=== PATIENT | female | born 1955 | race American Indian/Alaskan Native ===

== ENCOUNTER 2020-03-26 10:30 | Emergency (ER) | payer MEDICARE ==
[2020-03-26 11:01] LABS: Basophils % (Auto) 1.2 % (0.0-1.8); Eosinophils # (Auto) 0.1 K/mm3 (0.0-0.4); Eosinophils % (Auto) 2.6 % (0.0-4.3); Hematocrit 39.3 % (30.3-42.9); Hemoglobin 13.4 gm/dl (10.1-14.3); Lymphocytes # (Auto) 1.3 K/mm3 (1.2-5.4); Lymphocytes % (Auto) 40.2 % (13.4-35.0); Mean Corpuscular HGB Conc 34 % (30-34); Mean Corpuscular Volume 87 fl (79-97); Monocytes # (Auto) 0.2 K/mm3 (0.0-0.8); Monocytes % (Auto) 7.7 % (0.0-7.3); Platelet Count 196 K/mm3 (140-440); Red Cell Distribution Width 13.1 % (13.2-15.2)
[2020-03-26 11:37] LABS: BUN/Creatinine Ratio 16; Blood Urea Nitrogen 13 mg/dL (7-17); Calcium 9.5 mg/dL (8.4-10.2); Hemolysis Index 7
[2020-03-26] MEDS ORDERED: ZIPRASIDONE MESYLATE 20 MG VIAL IM ONE (14:50)
[2020-03-26] MEDS ORDERED: LORazepam 2 MG/ML VIAL IM ONE (14:50)
[2020-03-26 14:58] LABS: Bacteria,Urine 1+ /HPF (Negative); Bilirubin,Urine NEG (Negative); Blood,Urine NEG (Negative); Color,Urine Yellow (Yellow); Protein,Urine <15 mg/dL mg/dL (Negative); Urobilinogen,Urine < 2.0 mg/dL (<2.0)
[2020-03-26 15:03] LABS: Benzodiazepines Screen,Urine PRESUMPTIVE NEGATIVE; Cannabinoid Screen,Urine PRESUMPTIVE NEGATIVE; Cocaine Screen,Urine PRESUMPTIVE NEGATIVE; Methadone Screen,Urine PRESUMPTIVE NEGATIVE; Opiate Screen,Urine PRESUMPTIVE NEGATIVE
[2020-03-26 15:31] LABS: Amphetamine Screen,Urine PRESUMPTIVE POSITIVE
--- NOTE | 2020-03-26 16:58 | Emergency Department Report ---
HPI <HADLEY HOOPER - Last Filed: 03/26/20 21:34> - HPI HPI: 64-year-old -[place] female presents to the emergency department from her [facility] for a mental health evaluation. The patient has a history of schizophrenia. Per the [facility] staff member who brought her in, Claus, the patient has been having disorganized thoughts, erratic behavior and is not at her baseline mental status. Apparently the patient was recently at [facility] for an exacerbation of her schizophrenia but this has not yet been verified. At different points throughout her ED course the patient has display ed some tangential thoughts and expressed delusions and paranoia. At one point the patient tried to run out of the emergency department. She was seen 2 different times by the psychiatric occupancy specialist and her behavior has made her meet criteria to be made a 1013. She denies any hallucinations or any suicidal or homicidal ideations. <JANICE FRY S - Last Filed: 03/26/20 21:52> - General Chief Complaint: Psych Time Seen by Provider: 03/26/20 16:10 ED Past Medical Hx <HADLEY HOOPER - Last Filed: 03/26/20 21:34> - Past Medical History Previous Medical History?: Yes Hx Psychiatric Treatment: Yes (schizophrenia) Additional medical history: substance abuse - Social History Smoking Status: Never Smoker Substance Use Type: Alcohol, Cocaine <JANICE FRY S - Last Filed: 03/26/20 21:52> - Medications Home Medications: Home Medications Medication Instructions Recorded Confirmed Last Taken Type Nitrofurantoin Sutton/M-Cryst 100 mg PO Q12HR #14 capsule 03/26/20 Unknown Rx [Macrobid CAP] ED Review of Systems ROS: Stated complaint: MH EVAL Other details as noted in HPI <HADLEY HOOPER - Last Filed: 03/26/20 21:34> ROS: Stated complaint: MH EVAL Other details as noted in HPI Comment: All other systems reviewed and negative Constitutional: denies: chills, fever Respiratory: denies: cough, shortness of breath Cardiovascular: denies: chest pain, palpitations Gastrointestinal: denies: abdominal pain, vomiting Musculoskeletal: denies: back pain, arthralgia Neurological: denies: headache Psychiatric: denies: homicidal thoughts, suicidal thoughts <JANICE FRY S - Last Filed: 03/26/20 21:52> Physical Exam - Physical Exam Vital Signs: Vital Signs 03/26/20 03/26/20 03/26/20 10:31 15:24 19:30 Temperature 97.9 F 97.7 F Pulse Rate 96 H Respiratory 18 18 Rate Blood Pressure 138/91 [Left] O2 Sat by Pulse 96 96 Oximetry <HADLEY HOOPER - Last Filed: 03/26/20 21:34> - Physical Exam Vital Signs: Vital Signs 03/26/20 03/26/20 10:31 15:24 Temperature 97.9 F 97.7 F Pulse Rate 96 H Respiratory 18 Rate Blood Pressure 138/91 [Left] O2 Sat by Pulse 96 Oximetry Physical Exam: GENERAL: The patient is well-developed well-nourished. HENT: Normocephalic. Atraumatic. Patient has moist mucous membranes. EYES: Extraocular motions are intact. NECK: Supple. Trachea is midline. CHEST/LUNGS: Clear to auscultation. There is no respiratory distress noted. HEART/CARDIOVASCULAR: Regular. There is no tachycardia. ABDOMEN: Abdomen is soft, nontender. Patient has normal bowel sounds. SKIN: Skin is warm and dry. NEURO: The patient is awake, alert. The patient has no focal neurologic defici ts. Normal speech. MUSCULOSKELETAL: There is no tenderness or deformity. There is no evidence of ac [place] injury. PSYCH: The patient has some lucid moments and then other times is seen expressing delusions and tangential thoughts. <JANICE FRY S - Last Filed: 03/26/20 21:52> ED Course Vital Signs 03/26/20 03/26/20 03/26/20 10:31 15:24 19:30 Temperature 97.9 F 97.7 F Pulse Rate 96 H Respiratory 18 18 Rate Blood Pressure 138/91 [Left] O2 Sat by Pulse 96 96 Oximetry - Reevaluation(s) Reevaluation #1: 03/26/20 21:34 Patient has been accepted to the fifth floor psychiatric unit. <SANDIEHADLEY - Last Filed: 03/26/20 21:34> Vital Signs 03/26/20 03/26/20 10:31 15:24 Temperature 97.9 F 97.7 F Pulse Rate 96 H Respiratory 18 Rate Blood Pressure 138/91 [Left] O2 Sat by Pulse 96 Oximetry <JANICE FRY S - Last Filed: 03/26/20 21:52> ED Medical Decision Making - Lab Data Result diagrams: 03/26/20 10:46 03/26/20 10:46 Vital Signs 03/26/20 03/26/20 03/26/20 10:31 15:24 19:30 Temperature 97.9 F 97.7 F Pulse Rate 96 H Respiratory 18 18 Rate Blood Pressure 138/91 [Left] O2 Sat by Pulse 96 96 Oximetry Lab Results 03/26/20 03/26/20 03/26/20 Range/Units 10:46 10:46 10:46 WBC (4.5-11.0) K/mm3 RBC (3.65-5.03) M/mm3 Hgb (10.1-14.3) gm/dl Hct (30.3-42.9) % MCV (79-97) fl MCH (28-32) pg MCHC (30-34) % RDW (13.2-15.2) % Plt Count (140-440) K/mm3 Lymph % (Auto) (13.4-35.0) % Sutton % (Auto) (0.0-7.3) % Eos % (Auto) (0.0-4.3) % Baso % (Auto) (0.0-1.8) % Lymph # (1.2-5.4) K/mm3 Sutton # (0.0-0.8) K/mm3 Eos # (0.0-0.4) K/mm3 Baso # (0.0-0.1) K/mm3 Seg Neutrophils % (40.0-70.0) % Seg Neutrophils # (1.8-7.7) K/mm3 Sodium 137 (137-145) mmol/L Potassium 4.0 (3.6-5.0) mmol/L Chloride 101.0 (98-107) mmol/L Carbon Dioxide 22 (22-30) mmol/L Anion Gap 18 mmol/L BUN 13 (7-17) mg/dL Creatinine 0.8 (0.7-1.2) mg/dL Estimated GFR > 60 ml/min BUN/Creatinine Ratio 16 % Glucose 92 (65-100) mg/dL Calcium 9.5 (8.4-10.2) mg/dL Urine Color (Yellow) Urine Turbidity (Clear) Urine pH (5.0-7.0) Ur Specific [place] (1.003-1.030) Urine Protein (Negative) mg/dL Urine Glucose (UA) (Negative) mg/dL Urine Ketones (Negative) mg/dL Urine Blood (Negative) Urine Nitrite (Negative) Urine Bilirubin (Negative) Urine Urobilinogen (<2.0) mg/dL Ur Leukocyte Esterase (Negative) Urine WBC (Auto) (0.0-6.0) /HPF Urine RBC (Auto) (0.0-6.0) /HPF U Epithel Cells (Auto) (0-13.0) /HPF Urine Bacteria (Auto) (Negative) /HPF Salicylates 4.4 (2.8-20.0) mg/dL Urine Opiates Screen Urine Methadone Screen Acetaminophen < 5.0 L (10.0-30.0) ug/mL Ur Barbiturates Screen Ur Phencyclidine Scrn Ur Amphetamines Screen U Benzodiazepines Scrn Urine Cocaine Screen U Marijuana (THC) Screen Drugs of Abuse Note Plasma/Serum Alcohol (0-0.07) % 03/26/20 03/26/20 03/26/20 Range/Units 10:46 10:46 Unknown WBC 3.2 L (4.5-11.0) K/mm3 RBC 4.50 (3.65-5.03) M/mm3 Hgb 13.4 (10.1-14.3) gm/dl Hct 39.3 (30.3-42.9) % MCV 87 (79-97) fl MCH 30 (28-32) pg MCHC 34 (30-34) % RDW 13.1 L (13.2-15.2) % Plt Count 196 (140-440) K/mm3 Lymph % (Auto) 40.2 H (13.4-35.0) % [place] % (Auto) 7.7 H (0.0-7.3) % Eos % (Auto) 2.6 (0.0-4.3) % Baso % (Auto) 1.2 (0.0-1.8) % Lymph # 1.3 (1.2-5.4) K/mm3 Sutton # 0.2 (0.0-0.8) K/mm3 Eos # 0.1 (0.0-0.4) K/mm3 Baso # 0.0 (0.0-0.1) K/mm3 Seg Neutrophils % 48.3 (40.0-70.0) % Seg Neutrophils # 1.5 L (1.8-7.7) K/mm3 Sodium (137-145) mmol/L Potassium (3.6-5.0) mmol/L Chloride (98-107) mmol/L Carbon Dioxide (22-30) mmol/L Anion Gap mmol/L BUN (7-17) mg/dL Creatinine (0.7-1.2) mg/dL Estimated GFR ml/min BUN/Creatinine Ratio % Glucose (65-100) mg/dL Calcium (8.4-10.2) mg/dL Urine Color Yellow (Yellow) Urine Turbidity Clear (Clear) Urine pH 5.0 (5.0-7.0) Ur Specific [place] 1.014 (1.003-1.030) Urine Protein <15 mg/dl (Negative) mg/dL Urine Glucose (UA) Neg (Negative) mg/dL Urine Ketones Neg (Negative) mg/dL Urine Blood Neg (Negative) Urine Nitrite Pos (Negative) Urine Bilirubin Neg (Negative) Urine Urobilinogen < 2.0 (<2.0) mg/dL Ur Leukocyte Esterase Tr (Negative) Urine WBC (Auto) 4.0 (0.0-6.0) /HPF Urine RBC (Auto) 2.0 (0.0-6.0) /HPF U Epithel Cells (Auto) 3.0 (0-13.0) /HPF Urine Bacteria (Auto) 1+ (Negative) /HPF Salicylates (2.8-20.0) mg/dL Urine Opiates Screen Urine Methadone Screen Acetaminophen (10.0-30.0) ug/mL Ur Barbiturates Screen Ur Phencyclidine Scrn Ur Amphetamines Screen U Benzodiazepines Scrn Urine Cocaine Screen U Marijuana (THC) Screen Drugs of Abuse Note Plasma/Serum Alcohol < 0.01 (0-0.07) % 03/26/20 Range/Units Unknown WBC (4.5-11.0) K/mm3 RBC (3.65-5.03) M/mm3 Hgb (10.1-14.3) gm/dl Hct (30.3-42.9) % MCV (79-97) fl MCH (28-32) pg MCHC (30-34) % RDW (13.2-15.2) % Plt Count (140-440) K/mm3 Lymph % (Auto) (13.4-35.0) % [place] % (Auto) (0.0-7.3) % Eos % (Auto) (0.0-4.3) % Baso % (Auto) (0.0-1.8) % Lymph # (1.2-5.4) K/mm3 [place] # (0.0-0.8) K/mm3 Eos # (0.0-0.4) K/mm3 Baso # (0.0-0.1) K/mm3 Seg Neutrophils % (40.0-70.0) % Seg Neutrophils # (1.8-7.7) K/mm3 Sodium (137-145) mmol/L Potassium (3.6-5.0) mmol/L Chloride (98-107) mmol/L Carbon Dioxide (22-30) mmol/L Anion Gap mmol/L BUN (7-17) mg/dL Creatinine (0.7-1.2) mg/dL Estimated GFR ml/min BUN/Creatinine Ratio % Glucose (65-100) mg/dL Calcium (8.4-10.2) mg/dL Urine Color (Yellow) Urine Turbidity (Clear) Urine pH (5.0-7.0) Ur Specific [place] (1.003-1.030) Urine Protein (Negative) mg/dL Urine Glucose (UA) (Negative) mg/dL Urine Ketones (Negative) mg/dL Urine Blood (Negative) Urine Nitrite (Negative) Urine Bilirubin (Negative) Urine Urobilinogen (<2.0) mg/dL Ur Leukocyte Esterase (Negative) Urine WBC (Auto) (0.0-6.0) /HPF Urine RBC (Auto) (0.0-6.0) /HPF U Epithel Cells (Auto) (0-13.0) /HPF Urine Bacteria (Auto) (Negative) /HPF Salicylates (2.8-20.0) mg/dL Urine Opiates Screen Presumptive negative Urine Methadone Screen Presumptive negative Acetaminophen (10.0-30.0) ug/mL Ur Barbiturates Screen Presumptive negative Ur Phencyclidine Scrn Presumptive negative Ur Amphetamines Screen Presumptive positive U Benzodiazepines Scrn Presumptive negative Urine Cocaine Screen Presumptive negative U Marijuana (THC) Screen Presumptive negative Drugs of Abuse Note Disclamer Plasma/Serum Alcohol (0-0.07) % <SANDIEHADLEY - Last Filed: 03/26/20 21:34> - Lab Data Result diagrams: 03/26/20 10:46 03/26/20 10:46 - Radiology Data Radiology results: report reviewed CT head/brain wo con INDICATION / CLINICAL INFORMATION: AMS. TECHNIQUE: All CT scans at this location are performed using CT dose reduction for ALARA by means of automated exposure control. COMPARISON: None available. FINDINGS: E no acute intracranial hemorrhage. No abnormal extra-axial fluid collection. The ventricular system and basilar cisterns are normal. No large territorial infarction. The visualized paranasal sinuses and osseous structures are normal. IMPRESSION: 1. No acute intracranial abnormality. - Medical Decision Making This patient presents [facility] her [facility] with some erratic behavior and a change in her mental status that includes some delusions, paranoia. Patient was seen 2 different times by the psychiatric occupancy specialist, Joie, and has displayed acute psychosis. Patient denies any suicidal or homicidal ideations. Labs have been mostly unremarkable except for a urine drug screen positive for amphetamines. A CT scan of the head without contrast was completed that does not show any bleed, shift, mass, ischemia or any other acute intracranial abnormality. Her vital signs have been stable throughout her ED course thus far. The patient has been accepted for admission to the [facility] psych unit. <JANICE FRY S - Last Filed: 03/26/20 21:52> Critical care attestation.: If time is entered above; I have spent that time in minutes in the direct care of this critically ill patient, excluding procedure time. <HADLEY HOOPER - Last Filed: 03/26/20 21:34> Critical Care Time: No Critical care attestation.: If time is entered above; I have spent that time in minutes in the direct care of this critically ill patient, excluding procedure time. <JANICE FRY - Last Filed: 03/26/20 21:52> ED Disposition Is pt being admited?: No Does the pt Need Aspirin: No Time of Disposition: 21:35 (Patient to be discharged to fifth floor geriatric psychiatric unit) <HADLEY HOOPER - Last Filed: 03/26/20 21:34> Is pt being admited?: No <SHEAR,JANICE S - Last Filed: 03/26/20 21:52> Clinical Impression: Medical clearance for psychiatric admission, Acute psychosis Disposition: [id number]/[id number] PSY HOSP/PSY UNIT Condition: Stable Additional Instructions: Take the antibiotics as directed. Follow-up with the medical doctor within the next 5 to 7 days. Return to the emergency room right away with fevers, chills, lethargy, irritability, projectile vomiting, change in mental status, confusion, inability to tolerate liquid feeds, new, worsened or different symptoms not present on the initial emergency room evaluation. Prescriptions: Nitrofurantoin [place]/M-Cryst [Macrobid CAP] 100 mg PO Q12HR #14 capsule Referrals: PRIMARY CARE, [Primary Care Provider] - 3-5 Days
--- NOTE | 2020-03-26 20:24 | Cat Scan Report ---
CT head/brain wo con INDICATION / CLINICAL INFORMATION: AMS. TECHNIQUE: All CT scans at this location are performed using CT dose reduction for ALARA by means of automated e xposure control. COMPARISON: None available. FINDINGS: E no acute intracranial hemorrhage. No abnormal extra-axial fluid collection. The ventricular system and basilar cisterns are normal. No large territorial infarction. The visualized paranasal sinuses and osseous structures are normal. IMPRESSION: 1. No acute intracranial abnormality. Signer Name: Manuel Sims MD Signed: 03/26/2020 8:20 PM Workstation Name: [id number]
[2020-03-26 23:08] VITALS: BP 156/99
== END 2020-03-26 23:00 ==
LOC: ED 10:30
DX: F23 Brief psychotic disorder (principal); F14.90 Cocaine use, unspecified, uncomplicated; Z88.0 Allergy status to penicillin; Z88.8 Allergy status to other drugs, medicaments and biological substances; Z00.8 Encounter for other general examination; Z79.899 Other long term (current) drug therapy
CPT/HCPCS: 36415; 70450; 80048; 80307; 80320; 81001; 85025; G0480